=== PATIENT | female | born 1970 | race Caucasian/White ===

== ENCOUNTER → 2016-07-18 | Outpatient (CLI) | payer OTHER ==
[2016-07-18 09:09] LABS: BASOPHILS % (AUTO) 0 % (0-2); EOSINOPHILS # (AUTO) 0.6 10^3uL; EOSINOPHILS % (AUTO) 5 % (0-4); LYMPHOCYTES # (AUTO) 3.1 X10^3; MEAN CORPUSCULAR HEMOGLOBIN 30.5 PG (26.0-34.0); MEAN CORPUSCULAR HGB CONC 35.3 g/dL (31.0-37.0); MEAN CORPUSCULAR VOLUME 86 FL (80-100); MEAN PLATELET VOLUME 9.5 FL (6.0-9.5); MONOCYTES # (AUTO) 0.9 X10^3; MONOCYTES % (AUTO) 7 % (3-11); NEUTROPHILS # (AUTO) 7.4 X10^3; NEUTROPHILS % (AUTO) 62 % (51-67); PLATELET COUNT 296 10^3uL (150-450)
[2016-07-18 09:35] LABS: ALBUMIN 4.2 g/dL (3.4-5.0); ANION GAP 14.6 MEQ/L (3-15); CALCULATED IONIZED CALCIUM 4.2 mg/dL (3.8-4.6)
== END ==
LOC: RAD 08:24
PROVIDERS: ATTEND Obstetrics & Gynecology
DX: Z12.31 Encounter for screening mammogram for malignant neoplasm of breast (principal); N92.1 Excessive and frequent menstruation with irregular cycle; N93.8 Other specified abnormal uterine and vaginal bleeding; N94.5 Secondary dysmenorrhea; D25.2 Subserosal leiomyoma of uterus
CPT/HCPCS: 36415; 80053; 81025; 85025; G0202

== ENCOUNTER 2016-07-20 07:52 | Day surgery (SDC) | payer OTHER ==
[~2016-07-20] VITALS: Ht 165.1 cm; Wt 93.0 kg
[~2016-07-20 07:52] MED LIST: LACTATED RINGERS 1,000 ML IV SCH; MEDR5TAB PO; NAPR220T76 PO; SODIUM CHLORIDE FLUSH 3 ML SYR IV PRN
[2016-07-20 07:56] VITALS: BP 127/83
--- OUTSIDE RECORDS SUMMARY | 2016-07-20 07:56 | XMS REPORT | Continuity of Care Document ---
Author Author [facility] Address Unknown Phone Unavailable Support Name Relationship Address Phone RACHANA SÁNCHEZ MD Caregiver [address] [place] [id number] ARUN ROPER Next Of Kin [address] [place] [address] Insurance Providers Payer Name Policy Number Subscriber Name Relationship Self Pay Ivelisse Roper 18 Self / Same As Patient Advance Directives Directive Response Recorded Date/Time Advanced Directives No 04/23/16 10:05am Chief Complaint and Reason for Visit Chief Complaint Gynecological Complaint Reason for Visit Dysfunctional uterine bleeding Uterine fibroid Problems Active Problems Medical Problem Onset Date Status Dysfunctional uterine bleeding Unknown Acute Uterine fibroid Unknown Acute Medications Current Home Medications Medication Dose Units Route Directions Days/Qty Instructions Start Date Naproxen Sodium 220 Mg 220 Mg ORAL As Needed as needed for Headache 04/23/16 Medroxyprogesterone Acet (Provera) 5 Mg 5 Mg ORAL Daily 5 04/23/16 Social History Query Response Start Date Stop Date Smoking Status Never smoker Hospital Discharge Instructions No hospital discharge instructions. Plan of Care Discharge Date 04/23/16 12:35pm Disposition 01 HOME OR SELF-CARE Condition at Discharge Stable Instructions/Education Provided Dysfunctional Uterine Bleeding (ED) Uterine Fibroids (ED) Prescriptions See Medication Section Additional Instructions/Education For now, we will try a short duration of progesterone. If this does not work, would recommend other treatment options including daily progesterone or an intra-uterine device. If the bleeding does not improve, see your primary care physician. Return with increased pain, consider using naproxen 500 mg by mouth twice a day over the counter. Some of your test results may not be complete prior to your leaving the Emergency Department. The Emergency Department is not authorized to give test results over the phone. Please contact the doctor's office listed in this packet of information for your final results. Follow up with your primary care physician or return to the Emergency Department for worsening or worrisome symptoms. * Emergency Department phone number: [phone], x [phone]* MEDICAL RECORD If you need copies of your X-rays, call [phone]. If you need copies of your medical record, including lab results, a signed authorization for release of records will be required. A telephone call for release of Health Information is not allowed. BILLING Billing can sometimes be confusing and frustrating. To help avoid confusion in the future, please take a moment to acquaint yourself with the billing parties for services. SERVICE BILLING [facility] Emergency Room Services [facility] Physician Services [facility] X-[facility] Patients will receive bills for services from the appropriate provider. If you have any questions about your [facility] bill, our staff will be happy to assist you. Please call [phone], and ask for the billing department. THANK YOU for choosing [facility] as your emergency care provider! Care Plan and Goals ~~Discharge Care Plan~~ Problem: gynecological problem Goal: Decreased pain. Instructions: Take medication(s) as prescribed. Follow home care instructions as directed. Follow up with your [employer] or primary care physician as directed. Return if bleeding increases to more than one super pad per hour. Functional Status No functional status results. Allergies, Adverse Reactions, Alerts No known allergies. Immunizations No immunization records. Vital Signs Acute Vital Signs Vital Response Date/Time Temperature (Fahrenheit) 98.0 04/23/2016 12:51pm Pulse 90 bpm 04/23/2016 12:51pm Respirations 16 04/23/2016 12:51pm Height 5 ft 5 in Weight 207 lb Body Mass Index 34.0 kg/m^2 Results Laboratory Results Test Name Result Units Flags Reference Collection Date/Time Result Date/ Time Comments White Blood Count 11.96 10^3uL H 4.0-11.0 04/23/2016 10:50am 04/23/2016 11:01am Red Blood Count 5.05 10^6uL H 4.00-5.00 04/23/2016 10:50am 04/23/2016 11 :01am Hemoglobin 15.1 g/dL 12.0-15.5 04/23/2016 10:50am 04/23/2016 11:01am Hematocrit 42.90 % 35.00-45.00 04/23/2016 10:50am 04/23/2016 11:01am Mean Corpuscular Volume 85 FL 80-100 04/23/2016 10:50am 04/23/2016 11: 01am Mean Corpuscular Hemoglobin 29.9 PG 26.0-34.0 04/23/2016 10:50am 2015 11:01am Mean Corpuscular Hemoglobin Concent 35.2 g/dL 31.0-37.0 04/23/2016 10: 50am 04/23/2016 11:01am Red Cell Distribution Width 13.0 % 11.8-15.6 04/23/2016 10:50am 2015 11:01am Platelet Count 269 10^3uL 150-450 04/23/2016 10:50am 04/23/2016 11: 01am Mean Platelet Volume 9.4 FL 6.0-9.5 04/23/2016 10:50am 04/23/2016 11: 01am Neutrophils (%) (Auto) 68 % H 51-67 04/23/2016 10:50am 04/23/2016 11: 01am Lymphocytes (%) (Auto) 20 % 20-46 04/23/2016 10:50am 04/23/2016 11: 01am Monocytes (%) (Auto) 8 % 3-11 04/23/2016 10:50am 04/23/2016 11:01am Eosinophils (%) (Auto) 4 % 0-4 04/23/2016 10:50am 04/23/2016 11:01am Basophils (%) (Auto) 0 % 0-2 04/23/2016 10:50am 04/23/2016 11:01am Neutrophils # (Auto) 8.1 X10^3 04/23/2016 10:50am 04/23/2016 11:01am Lymphocytes # (Auto) 2.4 X10^3 04/23/2016 10:50am 04/23/2016 11:01am Monocytes # (Auto) 0.9 X10^3 04/23/2016 10:50am 04/23/2016 11:01am Eosinophils # (Auto) 0.5 10^3uL 04/23/2016 10:50am 04/23/2016 11: 01am Basophils # (Auto) 0.0 10^3uL 04/23/2016 10:50am 04/23/2016 11:01am Volume Urine Centrifuged 12 mL 04/23/2016 10:45am 04/23/2016 11: 10am Urine Collection Type CLEAN CATCH 04/23/2016 10:45am 04/23/2016 11: 10am Urine Color Dark Yellow 04/23/2016 10:45am 04/23/2016 11:03am Urine Clarity Clear 04/23/2016 10:45am 04/23/2016 11:03am Urine pH 5.0 5.0 - 8.0 04/23/2016 10:45am 04/23/2016 11:03am Urine Specific [place] 1.025 1.005-1.030 04/23/2016 10:45am 2015 11:03am Urine Protein Negative Negative 04/23/2016 10:45am 04/23/2016 11: 03am Urine Glucose (UA) 2+ H Negative 04/23/2016 10:45am 04/23/2016 11: 03am Urine RBC (Auto) 3+ H Negative 04/23/2016 10:45am 04/23/2016 11:03am Urine Ketones Negative Negative 04/23/2016 10:45am 04/23/2016 11: 03am Urine Nitrite Negative Negative 04/23/2016 10:45am 04/23/2016 11: 03am Urine Bilirubin Negative Negative 04/23/2016 10:45am 04/23/2016 11: 03am Urine Urobilinogen 0.2 mg/dL 0.2-1.0 04/23/2016 10:45am 04/23/2016 11: 03am Urine Leukocyte Esterase Negative Negative 04/23/2016 10:45am 2015 11:03am Urine RBC 50-100 /HPF 04/23/2016 10:45am 04/23/2016 11:10am Urine WBC None Seen /HPF 04/23/2016 10:45am 04/23/2016 11:10am Urine Bacteria None Seen /HPF 04/23/2016 10:45am 04/23/2016 11:10am Urine Squamous Epithelial Cells 2-5 /LPF 04/23/2016 10:45am 2015 11:10am Urine Amorphous Sediment 1+ /HPF H 04/23/2016 10:45am 04/23/2016 11: 10am Procedures No known history of procedures. Encounters Encounter Location Arrival/Admit Date Discharge/Depart Date Attending Provider Departed Emergency Room [facility] 04/23/16 10:07am 04/23/16 12: 35pm RACHANA SÁNCHEZ MD Recent Diagnosis
[2016-07-20] MEDS ORDERED: ALFENTANIL 500 MCG/ML (ALFENTA) 5 ML AMP IV ONE (09:01)
[2016-07-20] MEDS ORDERED: MIDAZOLAM 2 MG/2 ML (VERSED) VIAL ONE (09:01)
[2016-07-20] MEDS ORDERED: PROPOFOL 20 ML IV ONE (09:02)
[2016-07-20] MEDS ORDERED: SUCCINYLCHOLINE 20 MG/ML 10 ML VIAL ONE (09:02)
[2016-07-20] MEDS ORDERED: ONDANSETRON 2 MG/ML (Z0FRAN) 2 ML VIAL ONE (09:25)
[2016-07-20] MEDS ORDERED: KETOROLAC 60 MG/2 ML (TORADOL) VIAL IM ONE (09:48)
[2016-07-20] MEDS ORDERED: HYDROcodone/APAP 5 MG/325 MG (NORCO) TAB PO PRN (09:50)
[2016-07-20] MEDS ORDERED: diphenhydrAMINE 50 MG/ML INJ (BENADRYL) ONE (10:03)
[2016-07-20 10:15] VITALS: BP 126/69
--- NOTE | 2016-07-20 10:15 | Operative Report (E) ---
Operative Report (E) 07/20/16 10:01 Pre-Operative Diagnosis: Menometrorrhagia. fibroid uterus Post-Operative Diagnosis: same Procedure: Hysteroscopy, D&C, endometrial ablation with Novasure Surgeon: Justice Ruling Machine Set Up Operator: Claudia Fierro MS3 Anesthesia: GETA EBL: 20 Findings: Normal uterus, 10.5cm uterus, 4.5cm cervix, gave 6cm endometrial length, 5cm width, 57 second ablation. JACOB GOMEZ MD Jul 20, 2016 10:15
--- NOTE | 2016-07-20 10:16 | Discharge Instructions (E) ---
Discharge Instructions Instructions No restrictions at home. expect mild bleeding and cramping. Call with severe pain, bleeding or fevers. Doctor's Appointment 2 weeks Discharge Diet: Regular JACOB GOMEZ MD Jul 20, 2016 10:16
[2016-07-20] MEDS ORDERED: HYDR-3702 PO (10:17)
[2016-07-20 10:46] VITALS: BP 135/61
--- NOTE | 2016-07-20 13:01 | OPERATIVE REPORT ---
DATE OF OPERATION: 07/20/16 PRE-OPERATIVE DIAGNOSIS: Menometrorrhagia POST-OPERATIVE DIAGNOSIS: Menometrorrhagia OPERATIVE PROCEDURE: 1. Operative hysteroscope. 2. Dilatation and curettage. 3. Endometrial oblation with NovaSure. SURGEON: Ventura Rendon MD AIRCRAFT REFUELER: Claudia Fierro MS3 COMPLICATIONS: None ESTIMATED BLOOD LOSS: 20 mL ANESTHESIA: General endotracheal anesthesia FINDINGS: Intraoperatively the patient was noted to have an anteverted uterus with palpable posterior fibroids 2 to 3 cm x 2 fibroids. The uterus is mobile and slightly bulky. There is good anterior and posterior support. Hysteroscopy revealed a normal uterine cavity with normal bilateral ostia. The endometrial cavity length was measured at 6.0 cm, the width was 5.0 cm, and the total of ablative time was 57 seconds. DESCRIPTION OF PROCEDURE: After confirming the validity of the informed consent the patient was transported to the operating suite. She was placed in the dorsal lithotomy position after general anesthesia was administered without event. The patient was sterilely prepped and draped in the usual fashion and her bladder was emptied with a straight catheter. The cervix was grasped with a single tooth tenaculum and sounded to 10.5 cm. The cervical length was measured at 4.5 cm. The hysteroscope was primed and passed into the endometrial cavity with the findings as noted above. The hysteroscope was removed and the cervix was slightly dilated with cervical dilators. Gentle sharp curettage returned a moderate amount of tissue, which was sent for pathologic evaluation. The NovaSure device was then inserted to the fundus and deployed and settled well into the bilateral cornua. The cavity was then vacuumed tested to ensure integrity. The NovaSure device was then engaged for a total of 57 seconds of ablative time. The device was returned to its protective sheath and removed. It was inspected to ensure its integrity externally. The hysteroscope was again passed into the endometrial cavity revealing a good endometrial burn into the bilateral cornua to the level of the internal os. The hysteroscope was removed and the cervix was released and found to be thoroughly hemostatic. All needle, sponge and instruments counts were correct x2. The patient tolerated the procedure well and was transferred to PACU in good condition.
== END 2016-07-20 10:55 | disposition home or self-care (01) ==
LOC: ASC 07:52
PROVIDERS: ATTEND Obstetrics & Gynecology
DX: N92.1 Excessive and frequent menstruation with irregular cycle (principal); D25.9 Leiomyoma of uterus, unspecified; N85.4 Malposition of uterus; K21.9 Gastro-esophageal reflux disease without esophagitis; F17.210 Nicotine dependence, cigarettes, uncomplicated
CPT/HCPCS: 58353; J0330; J1200; J1885; J2250; J2405; 58558